=== PATIENT | male | born 2000 | race Caucasian/White ===

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

== ENCOUNTER 2018-12-13 01:02 | Emergency (ER) | payer OTHER ==
[~2018-12-13] VITALS: Ht 172.7 cm; Wt 74.8 kg
[2018-12-13 01:04] VITALS: BP 155/76
[2018-12-13 01:25] LABS: BASO # 0.1 10*3/uL (0.0-0.1); BASO % 1.1 % (0.0-1.0); EOS # 0.7 10*3/uL (0.0-0.4); EOS % 6.5 % (1.0-4.0); HEMATOCRIT 51.9 % (42.0-52.0); HEMOGLOBIN 17.7 g/dl (14.0-18.0); LYMPH % 29.1 % (27.0-41.0); MEAN CELL VOLUME 84.9 fl (80.0-94.0); MEAN CORPUSCULAR HGB CONC 34.1 g/dl (33.0-37.0); MEAN PLATELET VOLUME 10.2 fl (9.6-12.3); MONO # 0.8 10*3/uL (0.1-1.0); NEUT # 5.6 10*3/uL (2.3-7.9); PLATELET COUNT AUTOMATED 314 10*3/uL (130-400); RED BLOOD COUNT 6.11 10*6/uL (4.50-5.90); WHITE BLOOD COUNT 10.1 10*3/uL (4.8-10.8)
[2018-12-13 01:40] LABS: ALBUMIN 4.2 gm/dl (3.1-4.5); ALKALINE PHOSPHATASE 109 U/L (45-117); BUN 8 mg/dl (7-24); CHLORIDE 107 mmol/L (98-107); CREATININE 1.16 mg/dL (0.70-1.30); POTASSIUM 3.4 mmol/L (3.5-5.1); SGOT/AST 8 IU/L (3-35); SGPT/ALT 18 U/L (12-78); SODIUM 141 mmol/L (136-145)
[2018-12-13] MEDS ORDERED: ATARAX,VISTARIL50 MG PO (01:57)
== END 2018-12-13 02:05 | disposition home or self-care (01) ==
LOC: ED 01:02
PROVIDERS: Nurse Practitioner Family
DX: F41.9 Anxiety disorder, unspecified (principal); F17.200 Nicotine dependence, unspecified, uncomplicated

== ENCOUNTER 2019-09-13 22:31 | Emergency (ER) | payer BC ==
[~2019-09-13] VITALS: Ht 172.7 cm; Wt 72.6 kg
[~2019-09-13 22:31] MED LIST changes: +ATARAX,VISTARIL50 MG PO
[2019-09-13 22:41] VITALS: BP 142/68
[2019-09-14] MEDS ORDERED: ZITHROMAX250 MG PO (00:31)
[2019-09-14] MEDS ORDERED: MEDROL DOSEPAK4 MG PO (00:31)
== END 2019-09-14 00:35 | disposition home or self-care (01) ==
LOC: ED 22:31
DX: J45.909 Unspecified asthma, uncomplicated (principal); Z88.6 Allergy status to analgesic agent; Z91.018 Allergy to other foods

== ENCOUNTER 2020-02-06 00:06 | Emergency (ER) | payer BC ==
[~2020-02-06] VITALS: Ht 175.2 cm; Wt 74.8 kg
[~2020-02-06 00:06] MED LIST changes: +MEDROL DOSEPAK4 MG PO; +ZITHROMAX250 MG PO
[2020-02-06 00:14] VITALS: BP 124/62
== END 2020-02-06 03:01 | disposition home or self-care (01) ==
LOC: ED 00:06
DX: S06.0X0A Concussion without loss of consciousness, initial encounter (principal); J45.909 Unspecified asthma, uncomplicated; Z88.8 Allergy status to other drugs, medicaments and biological substances; Z88.6 Allergy status to analgesic agent; Z91.018 Allergy to other foods; X58.XXXA Exposure to other specified factors, initial encounter; Y93.89 Activity, other specified; Y92.89 Other specified places as the place of occurrence of the external cause; Y99.8 Other external cause status

== ENCOUNTER 2020-05-31 16:51 | Emergency (ER) | payer SELFPAY ==
[~2020-05-31] VITALS: Wt 74.8 kg
[2020-05-31 16:57] VITALS: BP 132/68
[2020-05-31 17:36] LABS: BASO # 0.1 10*3/uL (0.0-0.1); BASO % 1.4 % (0.0-1.0); EOS % 13.2 % (1.0-4.0); HEMATOCRIT 49.8 % (42.0-52.0); LYMPH # 1.9 10*3/uL (1.3-4.4); LYMPH % 23.7 % (27.0-41.0); MEAN CELL VOLUME 84.4 fl (80.0-94.0); MEAN CORPUSCULAR HGB 28.1 pg (27.0-31.0); MEAN CORPUSCULAR HGB CONC 33.3 g/dl (33.0-37.0); MEAN PLATELET VOLUME 10.4 fl (9.6-12.3); MONO # 0.7 10*3/uL (0.1-1.0); MONO % 8.4 % (3.0-9.0); NEUT # 4.1 10*3/uL (2.3-7.9); NEUT % 52.9 % (47.0-73.0); PLATELET COUNT AUTOMATED 271 10*3/uL (130-400); WHITE BLOOD COUNT 7.8 10*3/uL (4.8-10.8)
[2020-05-31 17:51] LABS: ALKALINE PHOSPHATASE 68 U/L (45-117); BUN 10 mg/dl (7-24); CHLORIDE 107 mmol/L (98-107); POTASSIUM 3.8 mmol/L (3.5-5.1); SGOT/AST 17 IU/L (3-35); SGPT/ALT 31 U/L (12-78); SODIUM 139 mmol/L (136-145); TOTAL PROTEIN 7.6 gm/dL (6.4-8.2)
[2020-05-31 17:54] LABS: BILIRUBIN Negative (Negative); BLOOD Negative (Negative); CLARITY Clear (Clear); COLOR Yellow (Yellow); GLUCOSE Negative (Negative); KETONE Negative (Negative); LEUKO ESTERASE Negative (Negative); NITRITE Negative (Negative); SPECIFIC GRAVITY <= 1.005 (1.001-1.030); UROBILINOGEN 0.2 E.U./dl (0.0-1.0)
[2020-05-31 18:20] LABS: WBC 0-2 wbc/hpf (0-5)
== END 2020-05-31 18:34 | disposition home or self-care (01) ==
LOC: ED 16:51
PROVIDERS: Physician Assistant
DX: R53.83 Other fatigue (principal); J45.909 Unspecified asthma, uncomplicated; F41.9 Anxiety disorder, unspecified; Z88.8 Allergy status to other drugs, medicaments and biological substances

== ENCOUNTER 2020-12-21 23:07 | Emergency (ER) | payer SELFPAY ==
[~2020-12-21] VITALS: Ht 180.3 cm; Wt 81.6 kg
[2020-12-21 23:27] VITALS: BP 124/73
[2020-12-21 23:49] LABS: BASO # 0.1 10*3/uL (0.0-0.1); EOS # 0.4 10*3/uL (0.0-0.4); EOS % 5.1 % (1.0-4.0); HEMATOCRIT 52.6 % (42.0-52.0); LYMPH # 1.9 10*3/uL (1.3-4.4); LYMPH % 23.8 % (27.0-41.0); MEAN CELL VOLUME 84.2 fl (80.0-94.0); MEAN CORPUSCULAR HGB CONC 33.3 g/dl (33.0-37.0); MEAN PLATELET VOLUME 10.1 fl (9.6-12.3); MONO # 0.7 10*3/uL (0.1-1.0); MONO % 9.2 % (3.0-9.0); NEUT # 4.9 10*3/uL (2.3-7.9); NEUT % 60.7 % (47.0-73.0); PLATELET COUNT AUTOMATED 284 10*3/uL (130-400); RED BLOOD COUNT 6.25 10*6/uL (4.50-5.90); RED CELL DISTRI WIDTH 12.3 % (0-14.5)
[2020-12-22 00:12] LABS: ALBUMIN 4.3 gm/dl (3.1-4.5); ALKALINE PHOSPHATASE 84 U/L (45-117); BUN 7 mg/dl (7-24); CHLORIDE 107 mmol/L (98-107); CREATININE 1.11 mg/dL (0.70-1.30); POTASSIUM 4.1 mmol/L (3.5-5.1); SGOT/AST 13 IU/L (3-35); SGPT/ALT 25 U/L (12-78); SODIUM 139 mmol/L (136-145); TOTAL PROTEIN 7.7 gm/dL (6.4-8.2)
[2020-12-22] MEDS ORDERED: MECLIZINE HCL25 M2 PO (00:24)
== END 2020-12-22 00:40 | disposition home or self-care (01) ==
LOC: ED 23:07
PROVIDERS: Internal Medicine
DX: R42 Dizziness and giddiness (principal); Z88.8 Allergy status to other drugs, medicaments and biological substances

== ENCOUNTER 2023-01-26 05:03 | Emergency (ER) | payer BC ==
[~2023-01-26] VITALS: Ht 175.2 cm
[~2023-01-26 05:03] MED LIST changes: +MECLIZINE HCL25 M2 PO
[2023-01-26 05:08] VITALS: BP 144/79
== END 2023-01-26 06:40 | disposition home or self-care (01) ==
LOC: ED 05:03
DX: K21.9 Gastro-esophageal reflux disease without esophagitis (principal); R09.1 Pleurisy; Z91.048 Other nonmedicinal substance allergy status; Z88.6 Allergy status to analgesic agent

== ENCOUNTER 2023-02-04 02:05 | Emergency (ER) | payer BC ==
[~2023-02-04] VITALS: Ht 170.1 cm; Wt 81.6 kg
[2023-02-04 02:17] VITALS: BP 148/72
[2023-02-04 03:06] LABS: BASO # 0.1 10*3/uL (0.0-0.1); BASO % 1.4 % (0.0-1.0); EOS # 0.5 10*3/uL (0.0-0.4); EOS % 7.1 % (1.0-4.0); HEMATOCRIT 50.8 % (42.0-52.0); LYMPH # 2.5 10*3/uL (1.3-4.4); LYMPH % 35.4 % (27.0-41.0); MEAN CELL VOLUME 84.2 fl (80.0-94.0); MEAN CORPUSCULAR HGB 28.2 pg (27.0-31.0); MEAN CORPUSCULAR HGB CONC 33.5 g/dl (33.0-37.0); MEAN PLATELET VOLUME 10.1 fl (9.6-12.3); MONO # 0.7 10*3/uL (0.1-1.0); MONO % 9.6 % (3.0-9.0); NEUT # 3.2 10*3/uL (2.3-7.9); NEUT % 45.9 % (47.0-73.0); PLATELET COUNT AUTOMATED 255 10*3/uL (130-400); RED BLOOD COUNT 6.03 10*6/uL (4.50-5.90); RED CELL DISTRI WIDTH 13.1 % (0-14.5); WHITE BLOOD COUNT 7.1 10*3/uL (4.8-10.8)
[2023-02-04 03:27] LABS: ALKALINE PHOSPHATASE 76 U/L (46-116); BUN 9 mg/dl (9-23); CHLORIDE 108 mmol/L (98-107); POTASSIUM 3.7 mmol/L (3.4-5.1); SGPT/ALT 13 U/L (10-49)
[2023-02-04] MEDS ORDERED: ANTIVERT25 M2 PO (04:05)
== END 2023-02-04 04:06 | disposition home or self-care (01) ==
LOC: ED 02:05
PROVIDERS: Emergency Medicine
DX: R42 Dizziness and giddiness (principal); K21.9 Gastro-esophageal reflux disease without esophagitis; F41.9 Anxiety disorder, unspecified; Z91.048 Other nonmedicinal substance allergy status; Z88.8 Allergy status to other drugs, medicaments and biological substances

== ENCOUNTER 2024-08-29 17:38 | Emergency (ER) | payer SELFPAY ==
[~2024-08-29] VITALS: Wt 79.4 kg
[~2024-08-29 17:38] MED LIST changes: +ANTIVERT25 M2 PO
[2024-08-29 17:42] VITALS: BP 135/73
[2024-08-29] MEDS ORDERED: SODIUM CHLORIDE 0.9% 1,000 ML IV ONE (17:50)
[2024-08-29] MEDS ORDERED: LORazepam 1 MG TAB PO ONE (17:50)
[2024-08-29 18:00] LABS: BASO # 0.1 10*3/uL (0.0-0.1); BASO % 1.1 % (0.0-1.0); EOS # 0.5 10*3/uL (0.0-0.4); HEMATOCRIT 46.1 % (42.0-52.0); MEAN CELL VOLUME 83.7 fl (80.0-94.0); MEAN CORPUSCULAR HGB 27.9 pg (27.0-31.0); MEAN CORPUSCULAR HGB CONC 33.4 g/dl (33.0-37.0); MEAN PLATELET VOLUME 10.1 fl (9.6-12.3); MONO # 0.6 10*3/uL (0.1-1.0); MONO % 8.6 % (3.0-9.0); NEUT # 3.7 10*3/uL (2.3-7.9); PLATELET COUNT AUTOMATED 233 10*3/uL (130-400); RED BLOOD COUNT 5.51 10*6/uL (4.50-5.90); RED CELL DISTRI WIDTH 12.8 % (0-14.5)
[2024-08-29 18:18] LABS: BUN 7 mg/dl (9-23); CHLORIDE 105 mmol/L (98-107); POTASSIUM 3.1 mmol/L (3.4-5.1)
[2024-08-29] MEDS ORDERED: VISTARIL25 MG PO (18:45)
[2024-08-29] MEDS ORDERED: POTASSIUM CHLORIDE 20 MEQ TAB PO ONE (18:45)
== END 2024-08-29 18:49 | disposition home or self-care (01) ==
LOC: ED 17:38
PROVIDERS: Emergency Medicine
DX: F41.9 Anxiety disorder, unspecified (principal); E87.6 Hypokalemia; J45.909 Unspecified asthma, uncomplicated; Z88.6 Allergy status to analgesic agent; Z88.8 Allergy status to other drugs, medicaments and biological substances

== ENCOUNTER 2025-04-03 11:54 | Emergency (ER) | payer SELFPAY ==
[~2025-04-03] VITALS: Ht 175.2 cm; Wt 72.6 kg
[~2025-04-03 11:54] MED LIST changes: +VISTARIL25 MG PO
[2025-04-03 12:12] VITALS: BP 135/90
== END 2025-04-03 13:13 | disposition left against medical advice (07) ==
LOC: ED 11:54
DX: R07.89 Other chest pain (principal); F41.9 Anxiety disorder, unspecified; Z53.21 Procedure and treatment not carried out due to patient leaving prior to being seen by health care provider

== ENCOUNTER 2025-04-03 21:33 | Emergency (ER) | payer SELFPAY ==
[~2025-04-03] VITALS: Ht 175.3 cm; Wt 72.6 kg
[2025-04-03 22:12] VITALS: BP 150/82
[2025-04-03 22:54] LABS: BASO # 0.1 10*3/uL (0.0-0.1); BASO % 0.9 % (0.0-1.0); EOS # 0.5 10*3/uL (0.0-0.4); EOS % 6.9 % (1.0-4.0); MEAN CELL VOLUME 84.0 fl (80.0-94.0); MEAN CORPUSCULAR HGB 28.0 pg (27.0-31.0); MEAN PLATELET VOLUME 10.3 fl (9.6-12.3); MONO # 0.7 10*3/uL (0.1-1.0); MONO % 9.8 % (3.0-9.0); NEUT # 3.8 10*3/uL (2.3-7.9); NEUT % 51.5 % (47.0-73.0); NUCLEATED RED BLOOD CELL 0.0 % (0.0-0.0); NUCLEATED RED BLOOD CELL 0.0 10*3/uL (0.0-0.0); PLATELET COUNT AUTOMATED 256 10*3/uL (130-400); RED CELL DISTRI WIDTH 13.0 % (0-14.5)
[2025-04-03 23:22] LABS: BUN 10 mg/dl (9-23); SGPT/ALT 10 U/L (5-49)
== END 2025-04-04 02:52 | disposition home or self-care (01) ==
LOC: ED 21:33
PROVIDERS: Emergency Medicine
DX: Z91.048 Other nonmedicinal substance allergy status (principal); Z88.6 Allergy status to analgesic agent; Z79.899 Other long term (current) drug therapy